=== PATIENT | female | born 1955 | race Caucasian/White ===

== ENCOUNTER 2019-04-10 07:30 | Inpatient (IN) | payer MEDICARE, MEDICAID ==
[~2019-04-10] VITALS: Ht 160 cm; Wt 74.0 kg
[2019-04-10] VITALS (18 sets, daily range): BP systolic 110–181; BP diastolic 70–97
[~2019-04-10 07:30] MED LIST: OTC SLEEP AID PO
[2019-04-10] MEDS ORDERED: famotidine 20mg tablet PO ONE (08:00)
[2019-04-10] MEDS ORDERED: cefazolin/dext.iso 2gm/100 ML IV ONE (08:00)
[2019-04-10] MEDS ORDERED: ringers solution, lacted 1,000 ML IV SCH (08:26)
[2019-04-10] MEDS ORDERED: proCHLORperazine 10 MG/2 ml inj IV PRN (08:30)
[2019-04-10] MEDS ORDERED: ondansetron/PF 4mg/2ml inj IV PRN (08:30)
[2019-04-10] MEDS ORDERED: morphine 4 MG/ML inj SYRINge IV PRN ×2 (08:30)
[2019-04-10] MEDS ORDERED: meperidine/PF 25mg/ml syringe IV PRN ×3 (08:30)
[2019-04-10] MEDS: ringers solution, lacted 1,000 ML IV SCH (08:36)
[2019-04-10 09:02] LABS: CLARITY,URINE CLEAR (Clear); COLOR,URINE YELLOW (Yellow); GLUCOSE, URINE NEGATIVE (Neg); KETONES,URINE NEGATIVE (Neg); LEUKOCYTE ESTERASE ,URINE NEGATIVE (Neg); NITRITES, URINE NEGATIVE (Neg); OCCULT BLOOD,URINE TRACE-INTACT (Neg); PROTEIN,URINE NEGATIVE (Neg); UROBILINOGEN,URINE 0.2 E.U/dL (0.2-1.0)
[2019-04-10 09:03] LABS: UA COLLECTION TYPE CLN CATCH MIDSTREAM
[2019-04-10 09:08] LABS: BACTERIA,URINE NONE SEEN /HPF (Neg); MUCUS STRANDS NONE SEEN /LPF (Neg); RBC,URINE 0-2 /HPF (0-2); SQUAMOUS EPITHELIAL CELL,UR FEW /LPF (FEW); WBC,URINE NONE SEEN /HPF (0-4)
[2019-04-10 09:14] LABS: BASOPHILS # (AUTO) 0.1 X10'3 (0-0.2); BASOPHILS % (AUTO) 0.6 % (0-1); EOSINOPHILS # (AUTO) 0.1 X10'3 (0-0.9); EOSINOPHILS % (AUTO) 1.1 % (0-6); LYMPHOCYTES # (AUTO) 2.5 X10'3 (1.1-4.8); LYMPHOCYTES % (AUTO) 30.1 % (21-51); MEAN CORPUSCULAR HEMOGLOBIN 33.7 PG (27.0-31.0); MEAN CORPUSCULAR VOLUME 96.3 FL (78-98); MEAN PLATELET VOLUME 6.6 FL (7.4-10.4); MONOCYTES # (AUTO) 0.6 X10'3 (0-0.9); MONOCYTES % (AUTO) 7.4 % (2-12); NEUTROPHILS # (AUTO) 5.1 X10'3 (1.8-7.7); NEUTROPHILS % (AUTO) 60.8 % (42-75); PRE OP HEMATOCRIT 43.2 % (35.0-45.0); PRE OP HEMOGLOBIN 15.1 g/dL (12.0-16.0); PRE OP PLATELET COUNT 271 X10'3 (140-440); RED BLOOD COUNT 4.49 X10'6 (4.20-5.60); RED CELL DISTRIBUTION WIDTH 12.9 % (11.5-14.5)
[2019-04-10 09:27] LABS: ALBUMIN 3.7 G/DL (3.4-5.0); ALBUMIN/GLOBULIN RATIO 1.1 (1.1-1.5); ALKALINE PHOSPHATASE 96 IU/L (46-116); BLOOD UREA NITROGEN 6 MG/DL (7-18); CALCIUM 8.8 MG/DL (8.5-10.1); CHLORIDE 105 MMOL/L (99-107); CREATININE 0.67 MG/DL (0.40-0.90); PRE OP ALT 54 U/L (30-65); PRE OP ANION GAP 9 (8-16); PRE OP AST 48 U/L (10-37); PRE OP BILIRUB, TOTAL 0.6 MG/DL (0.0-1.0); PRE OP GLUCOSE 118 MG/DL (70-104); PRE OP POTASSIUM 3.9 MMOL/L (3.4-5.1); PRE OP SODIUM 139 MMOL/L (135-145); TOTAL CARBON DIOXIDE 25.1 MMOL/L (24-32); TOTAL PROTEIN 7.1 G/DL (6.4-8.2); eGFR 89 ML/MIN
[2019-04-10] MEDS ORDERED: albuterol 2.5 MG/3 ML nebule NEB ONE (09:40)
[2019-04-10] MEDS ORDERED: albuterol 2.5 MG/3 ML nebule ONE (09:41)
[2019-04-10] MEDS ORDERED: diazepam 5mg tablet PO ONE (09:45)
[2019-04-10] MEDS ORDERED: ceFAZolin 1000mg inj ONE (09:50)
[2019-04-10] MEDS ORDERED: BUPIVAcaine/PF 2.5 mg/ml (0.25%) 30ml vial ONE ×2 (09:50→11:58)
[2019-04-10] MEDS ORDERED: midazolam 2 mg/2 ml injection ONE (10:25)
[2019-04-10] MEDS ORDERED: fentaNYL /PF 50mcg/ml 5ml ampule ONE (10:26)
[2019-04-10] MEDS ORDERED: propofol 10mg/ml 20ml vial IV ONE (10:40)
[2019-04-10] MEDS ORDERED: LIDOcaine 2% (20mg/ml) 5ml vial ONE (10:40)
[2019-04-10] MEDS ORDERED: sevoflurane 250ml liquid IH ONE (10:40)
[2019-04-10] MEDS ORDERED: rocuronium 10mg/ml inj IV ONE (10:52)
[2019-04-10] MEDS ORDERED: dexamethasone sod phosphate 4mg/ml inj. ONE (10:53)
[2019-04-10] MEDS ORDERED: ondansetron/PF 4mg/2ml inj ONE (10:53)
[2019-04-10] MEDS ORDERED: labetalol 20mg/4ml (5mg/ml) syringe IV ONE (11:17)
[2019-04-10] MEDS ORDERED: acetaminophen 1,000mg/100ml IV 100 ML IV ONE (11:51)
[2019-04-10] MEDS ORDERED: BUPIVACAINE liposomal/PF 13.3 MG/ML vial IM ONE (11:58)
--- NOTE | 2019-04-10 12:35 | NUR ---
Received from OR via SURGICAL BED , accompanied by Anesthesiologist RAYMUNDO and report given by Anesthesiolgist. PATIENT WITH 20G PIVI N LEFT UE RUNNING LR AT 100. 10-10 PAIN. AWARE. I MEDICATED PATIENT UPON ARRIVAL. LARGE ISLAND DRESSING TO ABDOMEN. FARIA CATHETER PRESENT. PATIENT DENTURE PLACED IN UPPER MOUTH. Addendum: 04/10/19 at 1254 by Star Multani RN, RN Amended: Links added.
[2019-04-10] MEDS ORDERED: naloxone 0.4 mg/ml inj IV PRN (13:20)
[2019-04-10] MEDS ORDERED: CADD PCA waste documentation MC PRN (13:20)
[2019-04-10] MEDS: HYDROmorphone/NS 1 mg/ml CADD 50 ML IV SCH ×6 (13:42→23:00)
--- NOTE | 2019-04-10 13:55 | NUR ---
ALL CRITERIA FOR TRANSFER TO THE FLOOR HAS BEEN ACHIEVED. VSS. BED LOW, CALL LIGHT AND VS. SET IN PLACE. RN PRESENT TO ACCEPT CARE. PATIENT RESTING COMFORTABLY IN BED. BELONGINGS SENT WITH PATIENT. DRESSINGS CDI. SET UP VS. ONE BAG OF BELONGINGS SENT TO ROOM WITH PATIENT. PAIN AT TOLERABLE LEVEL STATES PATIENT. YESSICA GARCIA AWARE PATIENT IS PRESENT IN ROOM. Addendum: 04/10/19 at 1410 by Star Wallis - YESSICA JUAN Amended: Links added.
--- NOTE | 2019-04-10 18:00 | NUR ---
Patient in room [facility]. I have received report from YESSICA GARCIA and had the opportunity to ask questions and assume patient care.
--- NOTE | 2019-04-10 18:12 | NUR ---
Problems reprioritized. Patient report given, questions answered & plan of care reviewed with ARNOLDO JUAN.
[2019-04-10] MEDS: temazepam 15mg capsule PO PRN (23:01)
[2019-04-11] VITALS: BP 137/71
[2019-04-11] MEDS: HYDROmorphone/NS 1 mg/ml CADD 50 ML IV SCH ×12 (01:00→23:00)
--- NOTE | 2019-04-11 03:50 | NUR ---
GIANA NOVOA PER MD SANTOS
--- NOTE | 2019-04-11 06:42 | NUR ---
Patient in room [facility]. I have received report from YESSICA aCbrera and had the opportunity to ask questions and assume patient care.
[2019-04-11 07:30] VITALS: BP 158/80
--- NOTE | 2019-04-11 10:00 | NUR ---
Pt has voided multiple times since anne out in [place], Pt voided 150, bladder scan shows 0ml in bladder. Will recheck next time she voids.
--- NOTE | 2019-04-11 11:30 | NUR ---
PT WAS BLADDER SCANNED 0ML WERE FOUND
[2019-04-11 11:57] VITALS: BP 162/79
[2019-04-11] MEDS: ringers solution, lacted 1,000 ML IV SCH (12:14)
[2019-04-11] MEDS: ketorolac trometh. 30mg/ml inj. IV PRN (14:55)
[2019-04-11] MEDS ORDERED: ondansetron/PF 4mg/2ml inj ONE (14:58)
[2019-04-11] MEDS: ondansetron/PF 4mg/2ml inj IV PRN (14:59)
[2019-04-11 18:00] VITALS: BP 157/82
--- NOTE | 2019-04-11 18:00 | NUR ---
Patient in room [facility]. I have received report from YESSICA Neville and had the opportunity to ask questions and assume patient care.
--- NOTE | 2019-04-11 18:21 | NUR ---
Problems reprioritized. Patient report given, questions answered & plan of care reviewed with YESSICA MCLAUGHLIN.
[2019-04-11] MEDS: temazepam 15mg capsule PO PRN ×2 (21:08→22:06)
[2019-04-12] MEDS: ondansetron/PF 4mg/2ml inj IV PRN (00:27)
[2019-04-12] MEDS: ketorolac trometh. 30mg/ml inj. IV PRN (00:27)
[2019-04-12 00:39] VITALS: BP 132/75
[2019-04-12] MEDS: HYDROmorphone/NS 1 mg/ml CADD 50 ML IV SCH ×5 (01:00→09:00)
--- NOTE | 2019-04-12 05:00 | NUR ---
pt ambulated 300'
--- NOTE | 2019-04-12 06:28 | NUR ---
Problems reprioritized. Patient report given, questions answered & plan of care reviewed with YESSICA Arreola.
--- NOTE | 2019-04-12 06:41 | NUR ---
Patient in room [facility]. I have received report from Rick JUAN and had the opportunity to ask questions and assume patient care.
[2019-04-12 07:00] VITALS: BP 164/87
--- NOTE | 2019-04-12 10:51 | NUR ---
Dr Cisneros rounded on pt to discharge home. Pt stated she has post-op pain meds at home that were ordered and picked up prior to surgery.
[2019-04-12 11:00] VITALS: BP 147/83
--- NOTE | 2019-04-12 11:23 | NUR ---
PT DISCHARGED IN STABLE CONDITION. LEFT FACILITY IN PRIVATE VEHICLE WITH FRIEND. ALL BELONGINGS IN HAND. IV DC CANULA INTACT. FOLLOW UP INSTRUCTIONS GIVEN, ALL QUESTIONS. ANSWERED. Addendum: 04/12/19 at 1124 by Sussy Bello RN Amended: Links added.
== END 2019-04-12 11:23 | disposition home or self-care (01) | DRG 355 ==
LOC: PAS 07:30 → SUR 3N 12:05
PROVIDERS: ADMIT Surgery; ATTEND Surgery
PROC: 3E0T3BZ Introduction of Anesthetic Agent into Peripheral Nerves and Plexi, Percutaneous Approach (ICD-10-PCS; 2019-04-10)
PROC: 0WUF0JZ Supplement Abdominal Wall with Synthetic Substitute, Open Approach (ICD-10-PCS; principal; 2019-04-10 10:30)
DX: K43.2 Incisional hernia without obstruction or gangrene (principal); E66.9 Obesity, unspecified; I10 Essential (primary) hypertension; F17.210 Nicotine dependence, cigarettes, uncomplicated; F32.9 Major depressive disorder, single episode, unspecified; Z86.19 Personal history of other infectious and parasitic diseases; Z90.710 Acquired absence of both cervix and uterus; Z68.28 Body mass index [BMI] 28.0-28.9, adult; Z98.891 History of uterine scar from previous surgery
CPT/HCPCS: 36415; 80053; 81001; 85025; 87081; 93005; 94640; A4618; A7000; C1781; C9290; G0378; J0131; J0690; J1100; J1170; J1885; J2001; J2175; J2250; J2270; J2405; J2704; J3010; J3490; J7120